=== PATIENT | female | born 2005 | race Caucasian/White ===

== ENCOUNTER 2024-12-12 19:17 | Emergency (ER) | payer BC ==
[2024-12-12] MEDS ORDERED: Sodium Chloride 0.9% 10 ML Syringe FLUSH PRN (19:33)
[2024-12-12] MEDS: Ondansetron 4 MG/2 ML SDV IVPUSH ONE (19:35)
[2024-12-12] MEDS: Lactated Ringers 1,000 ML IV ONE (19:35)
[2024-12-12] MEDS: Take Home: Ondansetron 4 MG Tab.DIS, 5 Tab Pack PO ONE (20:43)
== END 2024-12-12 20:20 | disposition home or self-care (01) ==
LOC: VM.ED 19:17
DX: R11.2 Nausea with vomiting, unspecified (principal)
CPT/HCPCS: 96361; 96374; 99283-25; 99284; J2405; J7120; Q0162